=== PATIENT | female | born 1950 | race Caucasian/White ===

== ENCOUNTER 2018-08-07 03:51 | Emergency (ER) | payer MEDICARE ==
[~2018-08-07] VITALS: Ht 154.9 cm; Wt 61.3 kg
[2018-08-07 04:41] LABS: CLARITY,URINE TURBID (Clear); COLOR,URINE YELLOW (Yellow); GLUCOSE, URINE NEGATIVE (Neg); KETONES,URINE NEGATIVE (Neg); LEUKOCYTE ESTERASE ,URINE SMALL (Neg); NITRITES, URINE POSITIVE (Neg); OCCULT BLOOD,URINE LARGE (Neg); PROTEIN,URINE >=300 mg/dl (Neg); UROBILINOGEN,URINE 0.2 E.U/dL (0.2-1.0)
[2018-08-07 04:43] LABS: UA COLLECTION TYPE CLN CATCH MIDSTREAM
[2018-08-07 04:52] LABS: RBC,URINE TNTC /HPF (0-2)
[2018-08-07 04:53] LABS: BACTERIA,URINE 1+ /HPF (Neg); SQUAMOUS EPITHELIAL CELL,UR FEW /LPF (FEW); WBC,URINE 50-100 /HPF (0-4)
[2018-08-07] MEDS ORDERED: NITR100C6 PO (06:30)
[2018-08-07] MEDS ORDERED: nitrofuran/nitrofuran macrocrysal 100 MG capsule PO ONE (06:30)
[2018-08-07 06:46] VITALS: BP 109/75
== END 2018-08-07 06:49 | disposition home or self-care (01) ==
LOC: ER 03:52
DX: N39.0 Urinary tract infection, site not specified (principal); R31.9 Hematuria, unspecified; Z90.710 Acquired absence of both cervix and uterus; Z88.2 Allergy status to sulfonamides
CPT/HCPCS: 81001; 87077; 87088; 87186; 99283